=== PATIENT | male | born 1965 | race Caucasian/White ===

== ENCOUNTER 2022-12-06 07:59 | Outpatient (CLI) | payer BC, SELFPAY ==
--- NOTE | 2022-12-06 08:00 | ECG_ITS ---
Measurements Intervals [place] Rate: 68 P: 42 MS: 176 QRS: 38 QRSD: 80 T: 47 QT: 359 QTc: 382 Interpretive Statements SINUS RHYTHM EARLY PRECORDIAL R/S TRANSITION BASELINE ARTIFACT- I, II, III, AVR, AVL, AVF BORDERLINE ECG NO PREVIOUS ECG AVAILABLE FOR COMPARISON Electronically Signed On 12-06-2022 8:55:46 CDT by Sergio Malone D.O.
[2022-12-06 10:01] LABS: Alanine Aminotransferase 21 U/L (6-50); Albumin Level 4.3 g/dL (3.5-5.1); Alkaline Phosphatase 58 U/L (38-126); Amylase 75 U/L (30-110); Aspartate Amino Transferase 25 U/L (17-59); Bilirubin,Total 0.8 mg/dL (0.2-1.3); Lipase 62 U/L (23-300)
== END 2022-12-06 08:00 | disposition home or self-care (01) ==
PROVIDERS: PCP Nurse Practitioner; Visit Provider Surgery
DX: K80.10 Calculus of gallbladder with chronic cholecystitis without obstruction (principal); Z01.818 Encounter for other preprocedural examination
CPT/HCPCS: 36415; 80076; 82150; 83690; 86850; 86900; 86901; 93005

== ENCOUNTER 2022-12-06 08:10 | Outpatient (CLI) | payer BC, SELFPAY ==
[2022-12-06 09:50] LABS: Basophils Absolute Auto 0.1 K/mm3 (0.0-0.1); Basophils Percent Auto 1.3 % (0.2-1.2); Eosinophils Absolute Auto 0.2 K/mm3 (0-0.3); Eosinophils Percent Auto 3.7 % (0-4.4); Hematocrit 44.9 % (42.0-52.0); Hemoglobin 15.6 g/dL (14.0-18.0); Immature Granulocyte Absolute 0.01 K/mm3 (0.00-0.031); Immature Granulocyte Percent A 0.2 % (0-0.5); Lymphocytes Absolute Auto 1.98 K/mm3 (0.9-3.2); Lymphocytes Percent Auto 36.9 % (18.3-44.2); Mean Corpuscular HGB Conc 34.7 g/dl (32-36); Mean Corpuscular Hemoglobin 32.3 pg (26-34); Mean Platelet Volume 9.7 fl (7.4-10.4); Monocytes Absolute Auto 0.5 K/mm3 (0.1-0.6); Monocytes Percent Auto 8.4 % (2.6-8.5); Neutrophils Absolute Auto 2.7 K/mm3 (1.3-6.7); Neutrophils Percent Auto 49.5 % (45.5-73.1); Platelet Count Result 271 k/mm3 (150-375); Red Blood Count 4.83 M/mm3 (4.6-6.20); Red Cell Distribution Width 11.9 % (11.5-14.5); White Blood Count 5.4 K/mm3 (4.5-10.0)
[2022-12-06 10:00] LABS: Alanine Aminotransferase 20 U/L (6-50); Albumin Level 4.3 g/dL (3.5-5.1); Alkaline Phosphatase 56 U/L (38-126); Anion Gap 7 mmol/L (8-16); Aspartate Amino Transferase 24 U/L (17-59); Bilirubin,Total 0.8 mg/dL (0.2-1.3); Blood Urea Nitrogen 13 mg/dL (9-20); Calcium 8.6 mg/dL (8.4-10.2); Carbon Dioxide 26 mmol/L (22-30); Chloride 106 mmol/L (98-107); Cholesterol 201 mg/dL (0-200); Estimated Glomerular Filt Rate > 60; Glucose 98 mg/dL (65-110); HDL Direct 40 mg/dL; Sodium 139 mmol/L (137-145); Triglycerides 186 mg/dL (<150)
[2022-12-06 10:11] LABS: LDL Cholesterol Direct 101 mg/dL
[2022-12-07 18:06] LABS: Prostate Specific Antigen 1.3 ng/mL (< OR = 4.0)
== END 2022-12-06 08:11 | disposition home or self-care (01) ==
LOC: ANHLAB 08:13
PROVIDERS: PCP Nurse Practitioner; Visit Provider Nurse Practitioner
DX: K80.10 Calculus of gallbladder with chronic cholecystitis without obstruction (principal); Z01.818 Encounter for other preprocedural examination; Z12.5 Encounter for screening for malignant neoplasm of prostate
CPT/HCPCS: 36415; 80053; 80061; 84153; 85025

== ENCOUNTER 2022-12-07 01:53 | Day surgery (SDC) | payer BC, SELFPAY ==
[2022-12-04 12:57] VITALS: BMI 26.6
--- NOTE | 2022-12-04 13:02 | PC.NURSE ---
Report to the Outpatient Waiting Room, entrance under the green pavilion located off [facility], at time 9:00 on date 12/07/22. Planned Procedure Time: 11:00. Time changes happen often and if your time is changed the preop area will call you the afternoon before. - You and your visitor will be asked to self-screen and do not enter if you have any COVID symptoms. - A mask is optional within the hospital at this time. Patients may have clear liquids (water, carbonated beverages, clear teas, apple juice) until 3 hours prior to surgery (8:00) with a maximum of 20 ounces. - No food from midnight until time of surgery Take the following medications with a SIP of water the morning of surgery: N/A DO NOT STOP ANY OF YOUR OTHER PRESCRIPTION MEDICATIONS PRIOR TO SURGERY ?EXCEPT THE FOLLOWING Medications to discontinue per physician: N/A Date to take last dose: N/A Please no make-up, nail macedonian, hairspray, perfume, deodorant, or body powder the day of surgery. No jewelry (including any body piercings) or valuables the day of surgery, leave them at home. Please take a shower or bath the night before, or the morning of, surgery with an antibacterial soap (HIBICLENS). Wear comfortable, loose fitting clothing. - Jewelry must be removed prior to entering the operating room. Rings and piercings that are not removed may be cut off. - The hospital will not accept responsibility for valuables. - Please leave all valuables, including medications, at home the day of surgery. If you are going home after surgery, a licensed concrete mixing truck driver must drive you home. - NO public transportation without another adult if you receive anesthesia. - We recommend that an adult stay with you for 24 hours following discharge. - We also recommend that you do not drive, make important decision, drink alcoholic beverages, or take any drugs that were not prescribed by your health care provider for at least 24 hours after your discharge time. Follow any additional instructions given to you from your surgeon. If you or anyone in your household have experienced Covid symptoms in the past week, please notify your surgeon or the nurse liaison at the phone number below for possible testing. Telephone instructions given to PT - BREEZY QIU and asked if any additional questions and then verbalized understanding. Patient advised to call surgeon office or pre surgery nurse liaison [phone] if any additional questions.
[2022-12-07] VITALS (9 sets, daily range): BP systolic 119–147; BP diastolic 70–86; PULSE 70–95; RESP 14–20; TEMP 36.1–36.3; O2SAT 100
--- NOTE | 2022-12-07 10:07 | P.PNAN_ITS ---
Anes - Initial Pre Proc Eval Procedure: Operation Date: 12/07/22 11:00 Proposed Procedures p Laparoscopic Cholecystectomy, Possible Open - Anthony Saavedra MD Date/Time: 12/07/22 10:07 Surgeon: Anthony Saavedra MD Pre Op Diagnosis: Symptomatic Cholelithiasis Patient Data Age: 57 Gender: M Height: 1.75 m Weight: 81.65 kg Allergies Allergy/AdvReac Type Severity Reaction Status Date / Time No Known Allergies Allergy Verified 12/04/22 12:58 Home Medications Medication Instructions Recorded Confirmed Type No Home Medications 11/28/22 12/06/22 History Patient hx anesthesia problems: none Family hx anesthesia problems: none Results Review: All pre-operative results and documents have been reviewed as part of the pre- operative evaluation. 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 Informed Consent: The patient's anesthetic plan and its attendant risks and benefits were discussed with the patient/family/POA. Questions were solicited and answers provided to the satisfaction of the patient/family/POA.
[2022-12-07] MEDS: ACETAMINOPHEN 500 MG TABLET 1000 MG PO (10:50)
[2022-12-07] MEDS: KETOROLAC 15 MG/ML VIAL (*BKC) IV PUSH ×2 (10:50→12:11)
[2022-12-07] MEDS: LACTATED RINGERS 1,000 ML 30 ML IV CONT ×2 (10:50→12:29)
--- NOTE | 2022-12-07 11:05 | WPDHPUPDATE1 ---
History and Physical Update Update Date/Time: 12/07/22 11:05 History and Physical has been reviewed, including an updated exam of the patient. There are NO changes in the patient's condition. Risks, benefits, and alternatives have been discussed and questions answered. Patient agrees to proceed with procedure.
[2022-12-07] MEDS: ceFAZolin 2 GM/D5W 50 ML 2 GM/50 ML BAG IVPB (11:19)
[2022-12-07] MEDS: LIDO 1%/EPINEPHRINE 1:100,000 20 ML VIAL 10 ML INFILTRATE (11:55)
[2022-12-07] MEDS: BUPivacaine HCL 0.5% PF 30 ML VIAL 10 ML INFILTRATE (11:56)
--- NOTE | 2022-12-07 12:24 | W.PM.PROC2 ---
Procedure Note - Detailed Date of Procedure 12/07/22 Pre-op Diagnosis Symptomatic Cholelithiasis Post-op Diagnosis Same (Chronic cholecystitis secondary to cholelithiasis) Procedure Performed Laparoscopic cholecystectomy. Surgeon Anthony Saavedra MD [facility] Anesthesia General Indications Patient is a 57-year-old gentleman who has had a couple episodes of severe right upper quadrant abdominal pain after eating. He underwent workup at outside facility showing gallstones within the gallbladder. Gallbladder wall thickening was seen. Liver enzymes were normal. Cardiac workup for cardiac origin of his pain was negative. Appears to have at least symptomatic cholelithiasis if not chronic cholecystitis secondary to cholelithiasis and presents now for elective laparoscopic cholecystectomy. Findings Gallbladder had a single gallstone within it measuring about 1cm in diameter. Gallbladder wall was mildly thickened without acute inflammatory changes. There were a few minor adhesions of the omentum to the gallbladder wall suggestive of mild chronic cholecystitis. Description of Procedure After informed consent was obtained patient brought to the operating room was placed supine position and general endotracheal anesthesia was administered. The abdomen was then prepped and draped in usual sterile fashion. A time-out was then performed correctly identifying the patient as well as procedure to be performed. He was given perioperative IV antibiotics. I entered the abdomen the left upper quadrant utilizing a 5mm Optiview port. Once inside the abdomen insufflated to adequate pneumoperitoneum of 15mmHg of CO2. There were no adhesions around the area of the umbilicus and so I placed a 5mm periumbilical trocar port under direct visualization. Laparoscopic then switched over to the periumbilical trocar port and looking into the upper portions the abdomen I placed an epigastric 10mm trocar port and 2 right lateral subcostal 5mm trocar ports all under direct visualization. The gallbladder was visualized and then I held it with a laparoscopic grasper at the dome and elevated over the right half liver toward the right shoulder. I then stripped down the mild chronic adhesions of the omentum to the gallbladder wall to expose the infundibulum. A 2nd grasper was then used to hold the gallbladder at the infundibulum and then I proceeded to strip down the visceral peritoneum off of the infundibulum until I identified the cystic duct. The cystic duct was then dissected out circumferentially. The cystic artery was identified and was dissected out circumferentially as well. The posterior wall the gallbladder at the infundibulum dissected free of the liver into the critical view was obtained. At this point I placed 2 clips proximal to cystic duct and 2 clips distally high on infundibular gallbladder. The cystic duct was divided with Endo [place]. In a similar fashion cystic artery was then clipped and divided as well. The gallbladder was then resected off the liver utilizing electrocautery without spilling any bile or gallstones. Once the gallbladder was freed from the liver is placed into an Endo-Catch bag and brought out through the epigastric port site. The gallbladder and contents were sent to pathology for examination. I then irrigated out the right upper quadrant the abdomen the gallbladder fossa with copious sterile saline solution. Hemostasis was excellent. Then aspirated the fluid from the right up on the abdomen from the pelvis. Removed all the trocar ports under direct visualization all port sites appeared hemostatic. I then allowed the abdomen decompressed. I then irrigated out the port sites and then the epigastric 10mm trocar port fascial defect was then closed utilizing 0 Vicryl suture placed in a figure-eight fashion. The skin edges in all the port sites were then approximated utilizing a running subcuticular 4-0 Monocryl suture. The incisio
[2022-12-07] MEDS: ONDANSETRON INJ 4 MG/2 ML VIAL IV PUSH (12:44)
[2022-12-07] MEDS: oxyCODONE HCL (*CRX) 5 MG TAB IR PO (13:57)
== END 2022-12-07 14:38 | disposition home or self-care (01) ==
PROVIDERS: PCP Nurse Practitioner; Visit Provider Surgery
PROC: 0FT44ZZ Resection of Gallbladder, Percutaneous Endoscopic Approach (ICD-10-PCS; CPT 47562; principal; 2022-12-07 11:00)
DX: K80.10 Calculus of gallbladder with chronic cholecystitis without obstruction (principal)
CPT/HCPCS: 47562; 36415; 80053; 80061; 80076; 82150; 83690; 84153; 85025; 86850; 86900; 86901; 88304; 93005; A9270; C1713; J0330; J0690; J1100; J1885; J2250; J2405; J2704; J3010; J7030; J7120